=== PATIENT | female | born 1955 | race African-American/Black ===

== ENCOUNTER → 2016-08-25 | Outpatient (CLI) | payer BC ==
[2014-09-29 08:51] VITALS: BP 118/70
[~2016-08-25] VITALS: Ht 165.1 cm; Wt 97.5 kg
[~2016-08-25] MED LIST: ASPI-482 PO; BUDE10.22 IH; LEVO25TA4 PO; LORA10TA68 PO; PROG100C7 PO; SINCALIDE 2 MCG in IV NORMAL SALINE 50ML 30 ML IV ONE; VALS40TA2 PO
--- NOTE | 2016-08-25 08:54 | RAD ---
Indication:Right upper quadrant abdominal pain Grayscale images of the abdomen were obtained. Comparison note is made of a similar examination April 18, 2005 and an ultrasound examination targeted to the gallbladder 09/23/2008. Liver:There is slightly increased attenuation of the ultrasound beam by the liver compatible with fatty infiltration. A focal mass lesion is not seen and the visualized liver Gallbladder:Normal. The common bile duct diameter of approximately 3 mm is also normal Spleen:Normal Pancreas:As visualized normal Kidneys:Normal Abdominal aorta and IVC:Normal Ancillary findings:None Impression:Essentially normal study. There is mild fatty infiltration of the liver
--- NOTE | 2016-08-25 12:50 | RAD ---
Hepatobiliary scan with ejection fraction History: Abdominal pain for 6 months. Procedure: Serial static images are obtained of the liver and biliary system in the frontal and right lateral projections following IV administration of 5.5 mCi of 99 M technetium Choletec. After filling of the gallbladder, 2.0 mcg of cholecystokinin was administered intravenously, additional imaging was performed for 30 minutes, and gallbladder ejection fraction was measured. Findings: There is homogeneous distribution throughout the liver. There is normal filling of the gallbladder and normal emptying into the biliary system and small bowel. The gallbladder ejection fraction measures 64% (normal gallbladder EF is 35% or greater). Impression: 1. No evidence of acute or chronic cholecystitis. Normal gallbladder ejection fraction.
== END | disposition home or self-care (01) ==
LOC: US 06:31
PROVIDERS: ATTEND Internal Medicine Gastroenterology
DX: K76.0 Fatty (change of) liver, not elsewhere classified (principal); I10 Essential (primary) hypertension; J45.909 Unspecified asthma, uncomplicated; Z79.01 Long term (current) use of anticoagulants
CPT/HCPCS: 76700; 78226; 96374; 96375; A9537; J2805

== ENCOUNTER → 2016-10-03 | Outpatient (CLI) | payer BC ==
[2014-09-29 08:51] VITALS: BP 118/70
[~2016-10-03] MED LIST changes: +PROG100C15 PO; -PROG100C7 PO; -SINCALIDE 2 MCG in IV NORMAL SALINE 50ML 30 ML IV ONE
--- NOTE | 2016-10-03 14:02 | RAD ---
Radionuclide gastric emptying study, 10/03/2016: History: Abdominal pain epigastric discomfort The study was performed utilizing a solid test meal radiolabeled with 2.1 mCi of technetium 99m sulfur colloid. The time to half emptying of the test meal from the patient's stomach was estimated at 2 to 5 minutes. A normal T1/T2 is 60 minutes +/- 30 minutes. IMPRESSION: Moderately delayed gastric emptying
== END | disposition home or self-care (01) ==
LOC: NM 07:32
PROVIDERS: ATTEND Internal Medicine Gastroenterology
DX: K30 Functional dyspepsia (principal)
CPT/HCPCS: 78264; A9541

== ENCOUNTER → 2018-09-14 | Outpatient (CLI) | payer BC ==
[2014-09-29 08:51] VITALS: BP 118/70
[~2018-09-14] MED LIST changes: +IOHEXOL 240 MG/ML 50ML VIAL. PO ONE; +IOHEXOL 300 MG/ML 100ML VIAL. IV ONE
--- NOTE | 2018-09-14 11:13 | [facility] ---
CT ABD PELV W/ORAL IV CONTRAST Indication: Right upper quadrant pain. Exposure: One or more of the following individualized dose reduction techniques were utilized for this examination: 1. Automated exposure control 2. Adjustment of the mA and/or kV according to patient size 3. Use of iterative reconstruction technique. Technique: Intravenous contrast was given. Oral contrast was given. Comparison: Prior studies are not available. FINDINGS: Lung bases are clear. There are several small hypodense subcentimeter lesions within the liver, too small to characterize but would typically be benign in the absence of relative risk factors. Spleen is not enlarged. Pancreas appears unremarkable. The kidneys enhance symmetrically without hydronephrosis. There are several tiny subcentimeter renal lesions too small to characterize but would most commonly be cysts. No calcified gallstone. Aorta is nonaneurysmal. No significant lymph node enlargement is identified. No evidence of small bowel obstruction. Moderate stool in the colon. No evidence of acute colitis. The appendix appears normal. No evidence of pneumoperitoneum or ascites. The urinary bladder demonstrates no significant wall thickening. Postsurgical changes at L5-S1. There are severe degenerative changes of the lumbar spine with severe loss of disc space. There is some ill-definition of the endplates at multiple levels. Vacuum disc. Extensive subchondral sclerosis at L1-L2. Mild retrolisthesis of L1 on L2. Mild anterolisthesis of L5 on L4 and L4 and L5. There is spinal stenosis particularly at L3-L4. No acute fracture IMPRESSION: 1. No acute findings in the abdomen or pelvis. 2. Moderate retained stool in the colon. 3. Tiny lesions in the liver and kidneys too small to characterize but would most commonly be benign in the absence of other appropriate risk factors. 4. 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 There is irregularity of the lumbar endplates, likely degenerative, unless there is specific clinical reason to have concern for discitis/osteomyelitis. Electronically signed by: Pro Malhotra MD (09/14/2018 11:10 AM) [id number]
== END | disposition home or self-care (01) ==
LOC: KCIC CT 07:58
PROVIDERS: ATTEND Physician Assistant
DX: K76.89 Other specified diseases of liver (principal); N28.9 Disorder of kidney and ureter, unspecified; K56.41 Fecal impaction; M47.816 Spondylosis without myelopathy or radiculopathy, lumbar region; M48.061 Spinal stenosis, lumbar region without neurogenic claudication; I10 Essential (primary) hypertension; Z95.0 Presence of cardiac pacemaker
CPT/HCPCS: 74177; Q9966; Q9967